=== PATIENT | male | born 1990 | race Caucasian/White ===

== ENCOUNTER 2016-12-25 19:25 | Emergency (ER) | payer OTHER ==
[~2016-12-25] VITALS: Ht 170.2 cm; Wt 79.4 kg
[2016-12-25] MEDS ORDERED: PRILOSEC 10MG C10 MG PO (19:37)
[2016-12-25 19:46] VITALS: BP 114/72
== END 2016-12-25 20:28 | disposition home or self-care (01) ==
LOC: ER 19:25
DX: S51.811A Laceration without foreign body of right forearm, initial encounter (principal); W26.8XXA Contact with other sharp object(s), not elsewhere classified, initial encounter; Y93.89 Activity, other specified; Y92.89 Other specified places as the place of occurrence of the external cause; Y99.0 Civilian activity done for income or pay